=== PATIENT | male | born 1940 | race Caucasian/White ===

== ENCOUNTER 2017-05-06 09:47 | Observation (INO) ==
[2017-05-06] MEDS ORDERED: Aspirin 81 MG TAB.CHEW PO ONE (09:59)
[2017-05-06] MEDS ORDERED: Nitroglycerin 0.4 MG TAB.SUBL SL PRN ×2 (09:59→15:13)
--- NOTE | 2017-05-06 10:02 | Emergency Department Note ---
Disposition Clinical Impression: Chest pain Qualifiers: Chest pain type: precordial pain Qualified Code(s): R07.2 - Precordial pain Disposition: Admitted As Inpatient Condition: Good Referrals: Dolores Diego MD [Primary Care Provider] - Forms: ED Satisfaction Letter Time of Disposition: 13:31 Chest Pain HPI - General Chief Complaint: ED Chest Pain Stated Complaint: chest pain Time Seen by Provider: 05/06/17 09:55 Source: patient Mode of arrival: ambulatory Limitations: no limitations Vital Signs Reviewed: Yes Nursing Notes Reviewed: Yes - History of Present Illness HPI Narrative: 76-year-old white male with history of coronary artery disease, status post CABG , presents with left chest discomfort that was present when he woke up at 7 AM this morning. The pain is an aching-type pain in his left chest. It radiates down his left shoulder into his left arm. No nausea, diaphoresis, or shortness of breath. It does not get worse with exertion. He has not tried any medication at home. He states he never had chest pain prior to his CABG, and has not had an OH, so he cannot compare this discomfort the previous episodes. He states that he does not remember when his last stress test was, it was probably shortly after his CABG. Pt complaint: chest pain Onset (ago): hour(s) Time: 07:00 Duration: constant Onset: during rest Pain Location: left chest Severity: moderate Severity scale (1-10): 7 Quality: aching Pain Radiation: LUE Improves with: nothing Worsens with: nothing Context: other (History of coronary artery disease with CABG) Associated symptoms: Denies: nausea, vomiting, diaphoresis, dyspnea, syncope, palpitations Treatments prior to arrival chest pain: none - Related Data Home Medications Medication Instructions Recorded Confirmed Albuterol Sulfate [Albuterol 2 puff IH Q4HR PRN 04/11/16 05/06/17 Inhaler] Calcium Carbonate [Calcium] 500 mg PO DAILY 04/11/16 05/06/17 Cetirizine HCl [24Hour Allergy] 10 mg PO DAILY 04/11/16 05/06/17 Ferrous Sulfate 325 mg PO BIDWM 04/11/16 05/06/17 Gabapentin [Neurontin] 800 mg PO TID 04/11/16 05/06/17 Gemfibrozil [Lopid] 600 mg PO BIDWM 04/11/16 05/06/17 Isosorbide MONOnitrate (24 HR) 30 mg PO DAILY 04/11/16 05/06/17 [Imdur] Metoprolol [Lopressor] 50 mg PO BID 04/11/16 05/06/17 Omeprazole [PriLOSEC] 40 mg PO DAILY 04/11/16 05/06/17 OxyCODONE/APAP 10/325 [Percocet 1 each PO Q4HR PRN 04/11/16 05/06/17 10/325 MG] glipiZIDE [Glipizide] 10 mg PO BID 04/11/16 05/06/17 Cholecalciferol (D-3) [Vitamin D] 5,000 unit PO DAILY 07/07/16 05/06/17 Bumetanide [Bumex] 1 mg PO QPM 05/06/17 05/06/17 Bumetanide [Bumex] 2 mg PO QAM 05/06/17 05/06/17 Insulin Regular U-500 [HumuLIN R 3 unit SQ Q1-2H 05/06/17 05/06/17 U-500] Allergies Allergy/AdvReac Type Severity Reaction Status Date / Time No Known Allergies Allergy Verified 03/17/17 15:38 All systems ED: reviewed and negative except as stated. Constitutional: Denies: fever, chills ENT ED: Denies: ear pain, throat pain Cardiovascular: Reports: chest pain. Denies: palpitations Respiratory: Denies: cough, dyspnea, wheezes Gastrointestinal: Denies: abdominal pain, nausea, vomiting Genitourinary: Denies: urgency, dysuria, frequency Musculoskeletal: Denies: back pain, neck pain Neurological: Denies: headache, weakness, numbness, paresthesias Chest Pain PMH - Past Medical History Medical history: Reports: arthritis, cancer, COPD, coronary artery disease, diabetes, GERD, hyperlipidemia, hypertension, renal disease Surgical history: Reports: cancer surgery (Right nephrectomy), coronary bypass ( CABG), prostatectomy Psychiatric history: Reports: no psych history - Social History Smoking Status: Former smoker Alcohol use: Reports: rarely Drug use: Reports: none Physical Exam - General Limitations: no limitations General appearance: alert, in no apparent distress - Head Head exam: atraumatic, normocephalic - Eye Eye exam: Present: PERRL, EOMI. Absent: scleral icterus, conjunctival injection - ENT ENT exam: normal oropharynx, mucous membranes moist, TM's normal bilaterally - Neck Neck exam: Present: normal inspection, full ROM, trachea midline. Absent: lymphadenopathy - Chest Chest inspection: Present: normal inspection, symmetric chest wall rise. Absent : tenderness - Respiratory Respiratory exam: Present: normal lung sounds bilaterally. Absent: respiratory distress, wheezes - Cardiovascular Cardiovascular exam: Present: regular rate, normal rhythm, normal heart sounds - Abdominal Exam Abdominal exam: Present: soft, Non-Tender. Absent: organomegaly, mass - Extremities Exam Extremities exam: Present: normal inspection, full ROM, normal capillary refill. Absent: tenderness, pedal edema, calf tenderness - Back Exam Back exam: Present: normal inspection. Absent: CVA tenderness (R), CVA tenderness (L) - Neurological Exam Neurological exam: Present: alert, oriented X3, normal gait. Absent: motor sensory deficit - Psychiatric Psychiatric exam: Present: normal affect, normal mood - Skin Skin exam: Present: warm, dry, intact, normal color. Absent: cyanosis, diaphoresis Course - Reevaluation(s) Reevaluation #1: No change with NTG. Does not want further NTG. Time: 10:45 Reevaluation #2: No pain at all now. Time: 11:40 Vital Signs Temperature 97.3 F L 05/06/17 09:48 Pulse Rate 74 05/06/17 09:48 Respiratory Rate 18 05/06/17 09:48 Blood Pressure 153/78 05/06/17 09:48 O2 Sat by Pulse Oximetry 97 05/06/17 09:48 Temperature 97.3 F L 05/06/17 09:48 Pulse Rate 75 05/06/17 13:24 Respiratory Rate 16 05/06/17 13:24 Blood Pressure 114/72 05/06/17 13:24 O2 Sat by Pulse Oximetry 95 05/06/17 13:24 Oxygen Delivery Oxygen Delivery Room Air Chest Pain - [facility] Narrative Medical decision making narrative: Differential includes but is not limited to unstable angina, myocardial infarction, GERD, esophageal spasm, chest wall pain, pulmonary embolus. Pain was relieved with morphine. No relief with nitroglycerin. His initial troponin repeat troponin are unremarkable. I spoke with Dr. Richardson, the hospitalist. He will admit to an observation bed, monitored, repeat enzymes, and decide on further workup at that time. - Lab Data Result diagrams: 05/06/17 10:25 05/06/17 10:25 Lab Results 05/06/17 05/06/17 05/06/17 Range/Units 10:25 10:25 10:25 WBC 6.6 (4.3-11.1) K/mcL RBC 4.09 L (4.19-5.50) M/mcL Hgb 12.2 L (12.9-16.9) g/dL Hct 36.1 L (37.5-50.1) % MCV 88.3 (83.0-100.0) fL MCH 29.8 (28.0-33.3) pg MCHC 33.8 (31.6-35.5) g/dL RDW 13.7 (11.5-14.5) % Plt Count 252 (140-400) K/mcL MPV 11.5 (9.4-12.4) fL Immature Gran % 0.5 (0-4) % Seg Neutrophils % 45.1 % Lymphocytes % 40.5 % Monocytes % 9.6 % Eosinophils % 3.5 % Basophils % 0.8 % Neutrophils # 3.0 (1.6-8.9) K/mcL Lymphocytes # 2.7 (0.6-4.6) K/mcL Monocytes # 0.6 (0.0-1.3) K/mcL Eosinophils # 0.2 (0.0-0.6) K/mcL Basophils # 0.1 (0.0-0.2) K/mcL D-Dimer 347 (0-500) ng/mLFEU Sodium 142 (136-145) mEq/L Potassium 4.5 (3.5-4.5) mEq/L Chloride 103 (98-109) mEq/L Carbon Dioxide 28 (19-29) mEq/L BUN 25 (8-26) mg/dL Creatinine 1.93 H (0.72-1.25) mg/dL Est GFR ( Amer) 41 L (> 60) Est GFR (Non-Af Amer) 34 L (> 60) BUN/Creatinine Ratio 13 (6-26) Glucose 118 H (70-99) mg/dL Calculated Osmolality 299 (280-300) Calcium 9.4 (8.6-10.8) mg/dL Total Bilirubin 0.3 (0.2-1.2) mg/dL AST 24 (5-34) Units/L ALT 25 (0-55) Units/L Alkaline Phosphatase 65 (38-126) Units/L Troponin I (0-0.03) ng/mL Serum Total Protein 7.3 (6.0-8.3) g/dL Albumin 3.4 L (3.5-5.0) g/dL Globulin 3.9 H (2.4-3.5) g/dL Albumin/Globulin Ratio 0.9 L (1.1-2.2) 05/06/17 05/06/17 Range/Units 10:25 12:33 WBC (4.3-11.1) K/mcL RBC (4.19-5.50) M/mcL Hgb (12.9-16.9) g/dL Hct (37.5-50.1) % MCV (83.0-100.0) fL MCH (28.0-33.3) pg MCHC (31.6-35.5) g/dL RDW (11.5-14.5) % Plt Count (140-400) K/mcL MPV (9.4-12.4) fL Immature Gran % (0-4) % Seg Neutrophils % % Lymphocytes % % Monocytes % % Eosinophils % % Basophils % % Neutrophils # (1.6-8.9) K/mcL Lymphocytes # (0.6-4.6) K/mcL Monocytes # (0.0-1.3) K/mcL Eosinophils # (0.0-0.6) K/mcL Basophils # (0.0-0.2) K/mcL D-Dimer (0-500) ng/mLFEU Sodium (136-145) mEq/L Potassium (3.5-4.5) mEq/L Chloride (98-109) mEq/L Carbon Dioxide (19-29) mEq/L BUN (8-26) mg/dL Creatinine (0.72-1.25) mg/dL Est GFR ( Amer) (> 60) Est GFR (Non-Af Amer) (> 60) BUN/Creatinine Ratio (6-26) Glucose (70-99) mg/dL Calculated Osmolality (280-300) Calcium (8.6-10.8) mg/dL Total Bilirubin (0.2-1.2) mg/dL AST (5-34) Units/L ALT (0-55) Units/L Alkaline Phosphatase (38-126) Units/L Troponin I 0.01 0.01 (0-0.03) ng/mL Serum Total Protein (6.0-8.3) g/dL Albumin (3.5-5.0) g/dL Globulin (2.4-3.5) g/dL Albumin/Globulin Ratio (1.1-2.2) - EKG Data EKG attestation: Yes I reviewed and interpreted this EKG. EKG results narrative: Sinus rhythm, rate of 74, frequent supraventricular premature complexes, age indeterminate septal infarct. Nonspecific ST-T changes. Rhythm strip shows sinus rhythm with a rate of 74, frequent supraventricular premature complexes, no other ectopy as interpreted by me. The AL interval was 186 ms, QRS is 89 ms. This is compared to a tracing dated 04/08/16, no significant change.
[2017-05-06 10:36] LABS: Basophils # 0.1 K/mcL (0.0-0.2); Basophils % 0.8 %; Eosinophils # 0.2 K/mcL (0.0-0.6); Eosinophils % 3.5 %; Hematocrit 36.1 % (37.5-50.1); Hemoglobin 12.2 g/dL (12.9-16.9); Immature Granulocytes % 0.5 % (0-4); Lymphocytes # 2.7 K/mcL (0.6-4.6); Lymphocytes % 40.5 %; Mean Corpuscular HGB Conc 33.8 g/dL (31.6-35.5); Mean Corpuscular Hemoglobin 29.8 pg (28.0-33.3); Mean Corpuscular Volume 88.3 fL (83.0-100.0); Mean Platelet Volume 11.5 fL (9.4-12.4); Monocytes # 0.6 K/mcL (0.0-1.3); Monocytes % 9.6 %; Platelet Count 252 K/mcL (140-400); Red Blood Count 4.09 M/mcL (4.19-5.50); Red Cell Distribution Width 13.7 % (11.5-14.5); Segmented Neutrophils % 45.1 %
[2017-05-06 10:55] LABS: Albumin 3.4 g/dL (3.5-5.0); Albumin/Globulin Ratio 0.9 (1.1-2.2); Bilirubin,Total 0.3 mg/dL (0.2-1.2); Calcium 9.4 mg/dL (8.6-10.8); Globulin 3.9 g/dL (2.4-3.5); Potassium 4.5 mEq/L (3.5-4.5); Total Protein 7.3 g/dL (6.0-8.3)
[2017-05-06] MEDS ORDERED: Ondansetron 4 MG/2 ML VIAL IVP ONE (10:59)
[2017-05-06] MEDS ORDERED: *HR* Morphine 2 MG/ML SYRINGE IVP ONE (10:59)
[2017-05-06] MEDS ORDERED: Naloxone 0.4 MG/ML INJ IVP PRN (15:13)
[2017-05-06] MEDS ORDERED: [UNRECOGNIZED DRUG - OTHER] SQ SCH (15:13)
[2017-05-06] MEDS ORDERED: *HR* OxyCODONE/APAP 10/325 TABLET PO PRN (15:13)
[2017-05-06] MEDS ORDERED: INSULIN REGULAR SQ SCH (15:13)
[2017-05-06] MEDS ORDERED: Ondansetron 4 MG/2 ML VIAL IVP PRN (15:13)
[2017-05-06] MEDS ORDERED: D5% in Water 1,000 ML IVC PRN (15:25)
[2017-05-06] MEDS ORDERED: Dextrose Gel 15 GM PO PRN ×2 (15:25)
[2017-05-06] MEDS ORDERED: *HR* Dextrose 50 % in Water (Syg) 50 ML SYRINGE IVP PRN (15:25)
--- NOTE | 2017-05-06 16:26 | Internal Med History&Physical ---
Date of Encounter: 05/06/17 Time of Encounter: 15:35 Assessment and Plan (1) Chest pain Current visit: Yes Status: Acute Repeat cardiac enzymes were ordered through emergency room. Further workup will be done as needed. Qualifiers: Chest pain type: precordial pain Qualified Code(s): R07.2 - Precordial pain (2) Anemia Current visit: Yes Status: Chronic Anemia has been present on all labs since February 2014. Workup 04/14/2017 showed no factor deficiency. Qualifiers: Anemia type: due to chronic kidney disease Chronic kidney disease stage: stage 3 (moderate) Qualified Code(s): N18.3 - Chronic kidney disease, stage 3 (moderate); D63.1 - Anemia in chronic kidney disease; D63.1 - Anemia in chronic kidney disease Internal Medicine - H&P: HPI Chief complaint: Left shoulder discomfort Admitted From: Home Plans for Post Hospital Care: Home History of present illness: Mr. Ramirez is a 76 year old male who came to emergency room stating he noted discomfort in his left shoulder onset 3-4 days ago. It seemed to radiate into his left arm. It became more pronounced today and he decided to come to emergency room. He was evaluated and felt deserved admission to [facility] for ongoing care needs. He describes the pain as neither sharp nor dull but simply a steady discomfort in his shoulder that has not changed since onset. There is no dyspnea or cough associated. He has not had previous similar pain. His cardiovascular history is significant for hypertension. He has known ASHD s /p 2 vessel CABG approximately 2009. He denies past AL. Had a heart catheterization 03/23/2015 which showed 55% stenosis of LMCA, 30% stenosis in the mid LAD, 20% stenosis in the mid RCA, and 20% stenosis in the mid circumflex. An echocardiogram was done 03/03/2015 which showed LVEF of 55-60%. There was increased thickness of interventricular septum and posterior wall 1.20 cm each. There was LAE at 5.0 cm. He denies DVT or pulmonary embolus. Past Med Surg Social Fam HX - Past Medical History Medical history: arthritis, cancer, COPD, coronary artery disease, diabetes, GERD, hyperlipidemia, hypertension, renal disease Psychiatric history: no psych history - Past Surgical History Surgical History: cancer surgery, coronary bypass (CABG), prostatectomy - Social History Smoking Status: Former smoker Smokeless Tobacco Status: No Alcohol use: rarely Drug use: none Internal Medicine - H&P: Meds Albuterol Sulfate [Albuterol Inhaler] 2 puff IH Q4HR PRN 04/11/16 [History] Calcium Carbonate [Calcium] 500 mg PO DAILY 04/11/16 [History] Cetirizine HCl [24Hour Allergy] 10 mg PO DAILY 04/11/16 [History] Ferrous Sulfate 325 mg PO BIDWM 04/11/16 [History] Gabapentin [Neurontin] 800 mg PO TID 04/11/16 [History] Gemfibrozil [Lopid] 600 mg PO BIDWM 04/11/16 [History] Isosorbide MONOnitrate (24 HR) [Imdur] 30 mg PO DAILY 04/11/16 [History] Metoprolol [Lopressor] 50 mg PO BID 04/11/16 [History] Omeprazole [PriLOSEC] 40 mg PO DAILY 04/11/16 [History] OxyCODONE/APAP 10/325 [Percocet 10/325 MG] 1 each PO Q4HR PRN 04/11/16 [History] glipiZIDE [Glipizide] 10 mg PO BID 04/11/16 [History] Cholecalciferol (D-3) [Vitamin D] 5,000 unit PO DAILY 07/07/16 [History] Bumetanide [Bumex] 1 mg PO QPM 05/06/17 [History] Bumetanide [Bumex] 2 mg PO QAM 05/06/17 [History] Insulin Regular U-500 [HumuLIN R U-500] 3 unit SQ Q1-2H 05/06/17 [History] 3 Allergy/AdvReac Type Severity Reaction Status Date / Time No Known Allergies Allergy Verified 03/17/17 15:38 All Systems PM: A 10-system review of systems was performed and is negative for pertinent findings except as documented above in the HPI. Review of systems: Gen.: He states his weight has been stable past few months Cardiovascular: As per history of present illness Respiratory: He smoked from age [age] up to 4 packs per day. He denies known chronic lung disease and does not use home oxygen. GI: He had a nephrectomy in the past for renal cell cancer. He states the surgery was curative. He has chronic kidney disease stage 3-4. He follows with a [facility] return[facility]. Denies other kidney or bladder disorders. He has had prostatectomy in the past without malignancy found. Neurologic: He denies large distribution strokes or seizures. Endocrine: He was diagnosed with DM 2 approximately 1989. He states his sugars are not well controlled at home. Hemoglobin A1c was 8.0% on 04/14/2017. He has hyperlipidemia but denies thyroid disease. Hematology/oncology: He denies blood disorders cancers or anemia Psychiatric: He denies anxiety depression or other mental health issues Musk skeletal: He has DJD but no known gout or other bone joint or muscle disorders. - Constitutional Vitals: Temp Pulse Resp BP Pulse Ox 97.3 F L 75 16 110/61 95 05/06/17 13:48 05/06/17 13:24 05/06/17 13:48 05/06/17 13:48 05/06/17 13:24 Exam: Gen.: He is a well-developed well-nourished male who appears in no acute distress at present time. HEENT: Head is atraumatic and normocephalic. Eyes: EOMI. There is no scleral icterus. Mouth: Mucosa is moist. Neck: Supple and nontender. There is no thyromegaly or adenopathy noted. Heart: Regular with frequent ectopic beats. There are no murmurs or gallops. Lungs: No wheezes or crackles are heard. Abdomen: Soft and nontender. No masses or guarding noted. He has a well- healed lower midline longitudinal abdominal scar. He has a small umbilical hernia that is easily reducible. Chest: He has no tenderness in chest wall to palpation Extremities: There is no cyanosis edema or clubbing noted. Dorsalis pedis and posttibial pulses are trace palpable bilaterally. His feet are warm to touch. Neurologic: Mental status: He is talkative and a good historian. Cranial nerves : Smile is symmetric. Forehead wrinkles bilaterally. Tongue protrudes midline. EOMI. Motor: There is no pronator drift. Cerebellar: Finger to nose is intact bilaterally. Skin: Warm and dry Internal Med - H&P Results - Labs CBC & Chem 7: 05/06/17 10:25 05/06/17 10:25
[2017-05-06] MEDS ORDERED: Bumetanide 1 MG TABLET PO SCH (18:00)
[2017-05-06] MEDS: Gabapentin 400 MG CAPSULE PO SCH ×2 (19:25→19:52)
[2017-05-06] MEDS: *HR* GlipiZIDE 5 MG TABLET PO SCH (19:47)
--- NOTE | 2017-05-06 20:32 | Electrocardiograph Report ---
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
[2017-05-07 06:30] VITALS: BP 126/59
[2017-05-07] MEDS: *HR* GlipiZIDE 5 MG TABLET PO SCH (07:41)
[2017-05-07] MEDS: Gabapentin 400 MG CAPSULE PO SCH (07:41)
[2017-05-07] MEDS ORDERED: Cholecalciferol (D-3) 1,000 UNIT TABLET PO SCH (09:00)
[2017-05-07] MEDS ORDERED: Isosorbide MONOnitrate (24 HR) 30 MG TAB.ER.24H PO SCH (09:00)
[2017-05-07] MEDS ORDERED: Bumetanide 1 MG TABLET PO SCH (09:00)
[2017-05-07] MEDS ORDERED: Loratadine 10 MG TABLET PO SCH (09:00)
--- NOTE | 2017-05-07 09:35 | Discharge Summary ---
Date of Encounter: 05/07/17 Time of Encounter: 09:25 - Discharge Diagnosis (1) Chest pain Priority: Primary Status: Resolved Qualifiers: Chest pain type: precordial pain Qualified Code(s): R07.2 - Precordial pain (2) Anemia Priority: Secondary Status: Chronic Qualifiers: Anemia type: due to chronic kidney disease Chronic kidney disease stage: stage 3 (moderate) Qualified Code(s): N18.3 - Chronic kidney disease, stage 3 (moderate); D63.1 - Anemia in chronic kidney disease; D63.1 - Anemia in chronic kidney disease - Discharge Medications Home Medications: Albuterol Sulfate [Albuterol Inhaler] 2 puff IH Q4HR PRN 04/11/16 [History] Calcium Carbonate [Calcium] 500 mg PO DAILY 04/11/16 [History] Cetirizine HCl [24Hour Allergy] 10 mg PO DAILY 04/11/16 [History] Ferrous Sulfate 325 mg PO BIDWM 04/11/16 [History] Gabapentin [Neurontin] 800 mg PO TID 04/11/16 [History] Gemfibrozil [Lopid] 600 mg PO BIDWM 04/11/16 [History] Isosorbide MONOnitrate (24 HR) [Imdur] 30 mg PO DAILY 04/11/16 [History] Metoprolol [Lopressor] 50 mg PO BID 04/11/16 [History] Omeprazole [PriLOSEC] 40 mg PO DAILY 04/11/16 [History] OxyCODONE/APAP 10/325 [Percocet 10/325 MG] 1 each PO Q4HR PRN 04/11/16 [History] glipiZIDE [Glipizide] 10 mg PO BID 04/11/16 [History] Cholecalciferol (D-3) [Vitamin D] 5,000 unit PO DAILY 07/07/16 [History] Bumetanide [Bumex] 1 mg PO QPM 05/06/17 [History] Bumetanide [Bumex] 2 mg PO QAM 05/06/17 [History] Insulin Regular U-500 [HumuLIN R U-500] 3 unit SQ Q1-2H 05/06/17 [History] Allergies/Adverse Reactions: 3 Allergy/AdvReac Type Severity Reaction Status Date / Time No Known Allergies Allergy Verified 03/17/17 15:38 Date of admission: 05/06/17 13:41 Primary care physician: Dolores Diego - Patient Status Disposition: Home, Self-Care Condition: Good Functional capacity at discharge: independent ambulation Overall status at discharge: patient is progressing back to baseline - Discharge Instructions Follow Up With: Dolores Diego MD [Primary Care Provider] - 1 week - Diet and Activity Activity: resume usual activities as tolerated Diet: advance to your usual diet Hospital course: Mr. Ramirez is a 76 year old male who came to emergency room stating he noted discomfort in his left shoulder onset 3-4 days ago. It seemed to radiate into his left arm. It became more pronounced today and he decided to come to emergency room. He was evaluated and felt deserved admission to [facility] for ongoing care needs. Initial orders were written by the emergency room physician. I saw him on May 06 and performed the history and physical. Reviewed his chest CT report from 12/30/2016 and heart catheter report of 2014. Repeat cardiac enzymes showed no evidence of myocardial damage. The etiology of his chest pain was not determined with certainty. The pain had resolved when I saw him May 07 and he felt stable for discharge home. He will follow with his PCP Dr. Diego within 1 week. - Time Spent with Patient Total time spent providing and/or coordinating discharge services: - Constitutional Vitals: Temp Pulse Resp BP Pulse Ox 98.3 F 51 18 126/59 97 05/07/17 06:26 05/07/17 06:26 05/07/17 06:26 05/07/17 06:26 05/07/17 09:15
--- NOTE | 2017-05-07 21:00 | Electrocardiograph Report ---
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
== END 2017-05-07 09:48 | disposition home or self-care (01) ==
LOC: INPPIK 09:47 → EMEROOPIK 09:47 → INPPIK 13:48
PROVIDERS: ADMIT Internal Medicine; ATTEND Internal Medicine